=== PATIENT | male | born 1980 | race Two or more races ===

== ENCOUNTER 2024-12-28 02:46 | Emergency (ER) | payer OTHER ==
[~2024-12-28] VITALS: Ht 165.1 cm; Wt 83.5 kg
[2024-12-28] MEDS ORDERED: TDAP [DIPH/PERTUSSIS/TET] 0.5 ML VIAL IM ONE (05:30)
[2024-12-28] MEDS: HYDROCODONE/APAP 5/325MG TABLET PO ONE (05:30)
[2024-12-28] MEDS: TDAP [DIPH/PERTUSSIS/TET] 0.5 ML VIAL IM ONE (05:37)
[2024-12-28] MEDS ORDERED: LIDOCAINE MPF 1%-EPI 1:200,000 30 ML VIAL IJ ONE (06:34)
[2024-12-28] MEDS ORDERED: LIDOCAINE HCL/MPF 1% 30 ML VIAL IJ ONE (06:50)
[2024-12-28] MEDS: LIDOCAINE HCL/PF 1% 30 ML VIAL TP ONE (06:51)
[2024-12-28] MEDS: CEFAZOLIN 2 GM in IV D5W 100 ML IV ONE (07:03)
[2024-12-28] MEDS ORDERED: CEPH500C2 PO (07:32)
[2024-12-28] MEDS ORDERED: MUPI15CR TP (07:32)
[2024-12-28] MEDS ORDERED: ACET-2605 PO (07:32)
[2024-12-28] MEDS ORDERED: IBUP-1957 PO (07:32)
[2024-12-28] MEDS ORDERED: SULF1TAB48 PO (07:32)
[2024-12-28] MEDS ORDERED: BACITRACIN ZINC OINT PACKET 1 EA PACKET TP ONE (07:50)
[2024-12-28] MEDS: BACITRACIN ZINC OINT PACKET 1 EA PACKET TP ONE (07:51)
[2024-12-28 07:54] VITALS: BP 143/97; TEMP 98.4; O2SAT 97
== END 2024-12-28 07:55 | disposition home or self-care (01) ==
LOC: ER 02:53
DX: S62.521B Displaced fracture of distal phalanx of right thumb, initial encounter for open fracture (principal); W20.8XXA Other cause of strike by thrown, projected or falling object, initial encounter; Y93.89 Activity, other specified; Y92.89 Other specified places as the place of occurrence of the external cause; Y99.8 Other external cause status
CPT/HCPCS: 12001; 29130; 73140; 90471; 90715; 96365; 99284; A4223; J0690; J3490; J7060